=== PATIENT | female | born 1935 | race Caucasian/White ===

== ENCOUNTER 2017-04-08 00:39 | Inpatient (IN) ==
[2017-04-02 10:12] LABS: MANUAL DIFF NEEDED? NO; URINE MICRO REVIEW NEEDED? NO; URINE SOURCE CLEAN CATCH
[2017-04-02 10:15] LABS: BASO% 0.4 % (0.0-0.8); EOS# 0.23 X1000 (0.0-0.7); HEMATOCRIT 42.6 % (37.0-47.0); HEMOGLOBIN 13.2 g/dL (12.0-16.0); IMM GRAN# 0.02 X1000 (0.0-0.04); IMM GRAN% 0.2 % (0.0-0.5); LYMPH# 2.72 X1000 (1.2-3.4); LYMPH% 23.6 % (20.5-51.1); MCH 25.8 PG (27-31); MCV 83.4 FL (81-99); MONO% 5.2 % (1.7-9.3); MPV 10.4 FL (7.4-10.4); NEUT% 68.6 % (42.2-75.2); PLT 251 X1000 (130-400); RBC 5.11 XMIL (4.2-5.4)
[2017-04-02 10:16] LABS: BILIRUBIN URINE NEGATIVE (NEGATIVE); BLOOD URINE NEGATIVE (NEGATIVE); COLOR YELLOW; GLUCOSE URINE NEGATIVE (NEGATIVE); LEUKOCYTES URINE NEGATIVE (NEGATIVE); NITRITE URINE NEGATIVE (NEGATIVE); PROTEIN URINE TRACE mg/dL (NEGATIVE); SP GRAVITY URINE 1.022; TURBIDITY URINE CLEAR (CLEAR); UROBILINOGEN URINE NORMAL (NORMAL)
[2017-04-02 10:17] LABS: UR EPITHELIAL CELLS <10 /HPF (<10); URINE BACTERIA NEGATIVE /HPF; URINE RBC <10 /HPF (<10); URINE WBC <10 /HPF (<10)
[2017-04-02 10:32] LABS: INR 0.96; PTT 26.7 Seconds (22.0-36.0)
[2017-04-02 11:13] LABS: AGAP 11; BUN 34 mg/dL (8-22); CALCIUM 9.3 mg/dL (8.8-10.2); CHLORIDE 101 mmol/L (98-107); COSMO 292; POTASSIUM 3.4 mmol/L (3.5-5.1); SODIUM 143 mmol/L (136-145); TCO2 31 mmol/L (25-35)
--- NOTE | 2017-04-02 11:20 | EKG Report ---
Test Performed on : 04/02/2017 09:55:18 AM Test Reason : PAT Blood Pressure : / mmHG Vent. Rate : 097 BPM Atrial Rate : 097 BPM P-R Int : 174 ms QRS Dur : 076 ms QT Int : 346 ms P-R-T Axes : 071 023 062 degrees QTc Int : 439 ms Normal sinus rhythm. Possible Left atrial enlargement Borderline ECG When compared with ECG of 12-DEC-2016 07:20, No significant change was found Confirmed by Matthew Hendrickson MD ([id number]) on 04/04/2017 3:03:02 PM
[2017-04-08] MEDS ORDERED: PEPCID ONE (08:17)
[2017-04-08] MEDS ORDERED: CELEBREX ONE (08:17)
[2017-04-08] MEDS ORDERED: KEFZOL 1 GM/D5W 1 GM/50 ML IVPB ONE (08:17)
[2017-04-08] MEDS ORDERED: LR 1,000 ML ONE (08:17)
[2017-04-08] MEDS ORDERED: COLACE ONE (08:17)
[2017-04-08] MEDS ORDERED: LYRICA ONE (08:17)
[2017-04-08] MEDS ORDERED: REGLAN ONE (08:17)
[2017-04-08] MEDS ORDERED: ALBUTEROL NEB ONE (08:41)
--- NOTE | 2017-04-08 09:17 | HISTORY AND PHYSICAL ---
CHIEF COMPLAINT: Right shoulder pain. HISTORY OF PRESENT ILLNESS: This is a 81-year-old, white female with a history of gradually increasing pain in her right shoulder. She has had some conservative treatment without relief. She was evaluated in the office and found to need a right total shoulder arthroplasty. The surgical procedure as well as risks and benefits were explained. The patient at this time is ready to proceed. ALLERGIES: Not allergic to any medications. SERIOUS ILLNESSES: COPD and hypertension. PAST SURGERIES: Gallbladder and cataract. REGULAR MEDICATIONS: Lasix 20 one a day, potassium 10 one a day, triamterene/hydrochlorothiazide 37.5/25 one a day. REVIEW OF SYSTEMS: HEENT: No history of migraines, dizziness, loss of conscious, or CVA. She states she is legally blind. Respiratory: Has a history of COPD and she continues to smoke. Heart: No history of heart abnormalities. Abdomen: She has some reflux. No history of bleeding ulcers. No history of bowel or bladder abnormalities. PHYSICAL EXAMINATION: GENERAL: This is a 81-year-old female, alert and oriented. Her primary care physician is Dr. Jaeger. HEENT: She has had cataract surgery and she states that she is legally blind. Pupils are equal and sluggish. RESPIRATORY: She has minimal wheezing but no respiratory distress. HEART: Regular rate and rhythm. ABDOMEN: Soft, nontender. Bowel sounds present. EXTREMITIES: She complains of pain in her right shoulder with some difficulty with range of motion. She has good sensation and pulses distally. IMPRESSION: Degenerative disease of the right shoulder. PLAN: Admit at this time for a right total shoulder arthroplasty. Dictated by Dallin Stallworth RN for Kaleb Moreno MD This chart was documented by the indicated scribe, Dallin Stallworth RN and accurately reflects the services I performed and decisions made by me, Kaleb Moreno MD, as attested by the provider's signature. cc: Kaleb Moreno MD
[2017-04-08] MEDS ORDERED: XYLOCAINE-MPF 2% ONE (09:49)
[2017-04-08] MEDS ORDERED: QUELICIN (DOSE) ONE (09:49)
[2017-04-08] MEDS ORDERED: ROBINUL ONE (09:49)
[2017-04-08] MEDS ORDERED: DIPRIVAN 1% ONE (09:49)
[2017-04-08] MEDS ORDERED: MARCAINE 0.25% PF ONE (09:59)
[2017-04-08] MEDS ORDERED: DURAMORPH ONE (09:59)
[2017-04-08] MEDS ORDERED: TORADOL ONE ×2 (09:59→10:20)
[2017-04-08] MEDS ORDERED: EXPAREL 1.3% ONE (10:00)
[2017-04-08] MEDS ORDERED: SODIUM CHLORIDE 0.9% ONE (10:00)
[2017-04-08] MEDS ORDERED: NEOSPORIN G.U. IRRIGANT ONE (10:00)
[2017-04-08] MEDS ORDERED: CYKLOKAPRON 1,000 MG/NS 1,000 MG/100 ML IVPB ONE (10:00)
[2017-04-08] MEDS ORDERED: OFIRMEV 1000 MG/ISOTONIC SOLN 1,000 MG/100 ML BOTTLE ONE (10:20)
[2017-04-08] MEDS ORDERED: ZOFRAN ONE (10:20)
[2017-04-08] MEDS ORDERED: DECADRON ONE (10:20)
[2017-04-08] MEDS ORDERED: VANCOMYCIN ONE (10:29)
[2017-04-08] MEDS ORDERED: ZEMURON ONE (10:37)
[2017-04-08] MEDS ORDERED: FENTANYL ONE (10:40)
[2017-04-08 11:09] LABS: URINE MICRO REVIEW NEEDED? NO; URINE SOURCE CATH
[2017-04-08 11:17] LABS: BILIRUBIN URINE NEGATIVE (NEGATIVE); BLOOD URINE NEGATIVE (NEGATIVE); COLOR YELLOW; GLUCOSE URINE NEGATIVE (NEGATIVE); LEUKOCYTES URINE NEGATIVE (NEGATIVE); NITRITE URINE NEGATIVE (NEGATIVE); PH URINE 5.5; PROTEIN URINE NEGATIVE (NEGATIVE); SP GRAVITY URINE 1.018; TURBIDITY URINE CLEAR (CLEAR); UR EPITHELIAL CELLS <10 /HPF (<10); URINE BACTERIA NEGATIVE /HPF; URINE RBC <10 /HPF (<10); URINE WBC <10 /HPF (<10); UROBILINOGEN URINE NORMAL (NORMAL)
[2017-04-08] MEDS ORDERED: MORPHINE IV PRN (12:10)
[2017-04-08] MEDS ORDERED: MILK OF MAGNESIA PO PRN (12:15)
[2017-04-08] MEDS ORDERED: ZOFRAN PO PRN (12:15)
[2017-04-08] MEDS ORDERED: TYLENOL PO SCH (12:15)
[2017-04-08] MEDS ORDERED: ZOFRAN IV PRN (12:15)
[2017-04-08] MEDS ORDERED: OXY IR PO PRN (12:15)
--- NOTE | 2017-04-08 12:24 | OPERATIVE NOTE ---
PROCEDURE DATE: 04/08/2017 PREOPERATIVE DIAGNOSIS: Right displaced proximal humeral fracture. HISTORY: The patient is approximately 3-1/2 months status post fall sustaining a right displaced proximal humeral fracture. She continued with pain and discomfort and had evidence of displacement and malposition. Recommendation to proceed with right reverse shoulder arthroplasty was offered. Risks and benefits of surgery were explained, including the risks of anesthesia, , bleeding, infection, failure to relieve pain, postoperative stiffness, nerve injury, blood clots, and other imponderables. All questions were answered. The patient and family wished to proceed with surgery. DETAILS OF OPERATION: Patient was taken to the operating room and placed supine on the operating table. Once adequate anesthesia was obtained, the patient was placed semi- Dunne beach-chair position. The right shoulder was subsequently prepped and draped in usual sterile fashion. Standard deltopectoral incision made with skin knife. Medial and skin envelopes were developed. Hemostasis was obtained using electrocautery. The deltopectoral fascia interval was developed, and retractors were placed. The conjoined tendon was then elevated. The fracture site was identified and then debrided. Osteotome was used to help to elevate the humeral head. Adjacent soft tissue was incised to remove the humeral head. After this had been performed, attention was then turned to the glenoid. Circumferential dissection was performed with a deep knife. A guide was then placed, and the guidepin was then placed in position on the glenoid. Reaming was then conducted. Central hole was then dilated. A wound was copiously irrigated with antibiotic pulsatile lavage. A standard metaglene was then impacted in position. Two 3 locking screws and one nonlocking screw was placed and had good purchase. The wound was copiously once again. A 42 eccentric Glenosphere was then placed with eccentricity placed inferiorly. The attention was then turned to the proximal humerus, reaming was then conducted. After adequate reaming had been conducted up to size in preparation size 8. Trial stem was then placed to determine the appropriate height. Copious irrigation was performed with antibiotic pulsatile lavage while vancomycin mixed with cement on the back table. The cement was impacted in the humeral shaft, and the size 8 Delta Extend stem was then cemented in position, in 10 degrees of retroversion. After cement had cured, per trial cup size, then placed 42 + 3 humeral cup, had excellent stability and range of motion. Trial cup was then removed. The wound was copiously irrigated once again with antibiotic pulsatile lavage. A 42 + 3 humeral cup was impacted on the stem. The shoulder was reduced, carried through a range of motion. Had good range of motion and good stability. Exparel was placed in deep soft tissue, as well subcutaneous tissue. Copious irrigation was then performed once again with antibiotic pulsatile lavage. Exparel was then placed in deep soft tissue as well as the subcutaneous tissue. The wound was copiously irrigated with antibiotic pulsatile lavage. A 2-0 Vicryl used to repair the subcutaneous tissue, followed by running 2-0 Prolene. Benzoin and Steri-Strips applied. Adaptic, sterile 4 x 4, ABD pad, and tape the right shoulder, followed by shoulder immobilizer. All counts were correct. Patient tolerated the procedure well and was transferred to recovery room in stable condition. cc: Kaleb Moreno MD MTDD
--- NOTE | 2017-04-08 12:26 | Diag Imaging Result Doc PS360 ---
SHOULDER 1 VIEW RIGHT - 04/08/2017 INDICATION: post op tsa TECHNIQUE: COMPARISON: 12/12/2016 FINDINGS: There has been right total shoulder arthroplasty. Alignment is anatomic. No hardware fracture or loosening. 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 This measures about 4.5 x 1.4 cm. IMPRESSION: No complication. Electronically signed by Catarino Tavares 04/08/2017 12:24 PM
[2017-04-08] MEDS ORDERED: NS 1,000 ML ONE (12:38)
[2017-04-08] MEDS: DYAZIDE PO SCH (13:46)
[2017-04-08] MEDS: LASIX PO SCH (13:47)
[2017-04-08] MEDS: KLOR-CON PO SCH (13:47)
[2017-04-08] MEDS: NS 1,000 ML IV SCH (13:47)
[2017-04-08] MEDS: TYLENOL PO SCH ×2 (16:05→22:00)
[2017-04-08] MEDS ORDERED: CYKLOKAPRON 1,000 MG in NS 100 ML IV ONE (16:20)
[2017-04-08] MEDS: KEFZOL 1 GM/D5W 1 GM/50 ML IVPB IV SCH ×2 (16:55→18:20)
[2017-04-08] MEDS: PERIDEX MT SCH (22:00)
[2017-04-08] MEDS: COLACE PO SCH (22:00)
[2017-04-09] MEDS: KEFZOL 1 GM/D5W 1 GM/50 ML IVPB IV SCH (01:21)
[2017-04-09] MEDS: NS 1,000 ML IV SCH (01:21)
[2017-04-09] MEDS: TYLENOL PO SCH ×2 (04:29→11:42)
[2017-04-09 06:03] LABS: HEMATOCRIT 35.3 % (37.0-47.0); HEMOGLOBIN 10.6 g/dL (12.0-16.0)
[2017-04-09 06:40] LABS: AGAP 12; BUN 26 mg/dL (8-22); CALCIUM 9.1 mg/dL (8.8-10.2); CHLORIDE 105 mmol/L (98-107); COSMO 291; SODIUM 143 mmol/L (136-145); TCO2 26 mmol/L (25-35)
--- NOTE | 2017-04-09 07:52 | PROGRESS NOTE ---
DATE: 04/09/2017 SUBJECTIVE: The patient is a pleasant, 81-year-old female who is 1 day status post right reverse shoulder arthroplasty for a fracture. She is currently resting comfortably this morning. PHYSICAL EXAMINATION: General: The patient is awake, alert, and cooperative with exam. Extremities: Right upper extremity dressing is intact. She has good squash centre manager strength. She is neurovascularly intact. LABORATORY: Her hemoglobin is 10.6, hematocrit 35.3. IMPRESSIONS: Postoperative day #1 status post right reverse total shoulder arthroplasty. PLAN: At this point, will change her dressing and discontinue her drain and Hep-Lock her IV. Will plan on discharging home this morning. The patient will receive home physical therapy. She will follow up in the office in 12-14 days. cc: Kaleb Moreno MD
[2017-04-09] MEDS ORDERED: PEPCID PO SCH (09:00)
[2017-04-09] MEDS: COLACE PO SCH (10:07)
[2017-04-09] MEDS: KLOR-CON PO SCH (10:07)
[2017-04-09] MEDS: LASIX PO SCH (10:08)
[2017-04-09] MEDS: DYAZIDE PO SCH (10:08)
[2017-04-09] MEDS: PERIDEX MT SCH (11:22)
[2017-04-10 16:46] VITALS: BP 86/50
== END 2017-04-09 13:17 | disposition home health service (06) ==
LOC: SURHOLD 00:39 → 4N 12:56
PROVIDERS: ADMIT Orthopaedic Surgery Adult Reconstructive Orthopaedic Surgery; ATTEND Orthopaedic Surgery Adult Reconstructive Orthopaedic Surgery